=== PATIENT | female | born 1990 | race Two or more races ===

== ENCOUNTER 2025-02-03 13:12 | Emergency (ER) | payer SELFPAY ==
[2025-02-03 13:28] VITALS: BP 136/92; PULSE 95; RESP 18; TEMP 36.9; O2SAT 99; BMI 37.6
--- NOTE | 2025-02-03 13:33 | XR_ITS ---
Examination: Pelvic ultrasound, transabdominal, complete Technique: Transabdominal ultrasound of the pelvis performed using grayscale imaging Date and time of exam: February 03, 2025 1359 hours INDICATIONS: Irregular heavy vaginal bleeding one month FINDINGS: Uterus 11.6 cm multiple uterine masses, the largest in the fundus 4.5 x 4.0 cm Endometrium is obscured by the uterine masses Ovaries obscured by bowel gas IMPRESSION: Limited study secondary to bowel gas Multiple uterine masses, the largest in the fundus 4.5 cm, consider transvaginal pelvic sonography follow-up
--- NOTE | 2025-02-03 13:33 | PD.EDRME ---
Rapid Medical Screening Exam RME Arrival date/time: 02/03/25 13:12 34-year-old female presents emergency department today for complaint of vaginal bleeding Chief Complaint: Vaginal Bleeding Time Seen by Provider: 02/03/25 13:33 Vital signs: Vital Signs Temperature 98.5 F 02/03/25 13:28 Pulse Rate 95 02/03/25 13:28 Respiratory Rate 18 02/03/25 13:28 Blood Pressure 136/92 H 02/03/25 13:28 Pulse Oximetry (%) 99 02/03/25 13:28 Oxygen Delivery Method Room Air 02/03/25 13:28
[2025-02-03 13:54] LABS: Collection Type, Urine Clean Catch
[2025-02-03 14:04] LABS: Bilirubin,Urine Negative (Negative); Blood,Urine 3+ (Negative); Color,Urine Brown (Lt Yel-Yel); Culture Indicated,Urine Contaminated; Glucose, Urine Negative (Negative); Ketones,Urine Negative (Negative); Leukocyte Esterase,Urine Positive (Negative); Nitrite,Urine Negative (Negative); PH,Urine 5.5 (5.0-7.0); Protein,Urine 1+ (Neg - Trace); RBC,Urine 5206 /hpf (0-3); Specific Gravity,Urine 1.023 (1.001-1.035); Squamous Epithelial Cell,Urine 13 /hpf (0-5); Urobilinogen,Urine Negative mg/dL (0.0-1.0); WBC,Urine 50 /hpf (0-5)
[2025-02-03 14:05] LABS: Basophils # (Auto) 0.0 Thou/mm3 (0.0-0.2); Basophils % (Auto) 1 % (0-2.5); Eosinophils # (Auto) 0.1 Thou/mm3 (0.0-0.5); Eosinophils % (Auto) 2 % (0-10); Hematocrit 27.6 % (36.0-46.0); Immature Granulocytes Auto 0.02 Thou/mm3 (0.00-0.00); Lymphocytes # (Auto) 2.4 Thou/mm3 (1.0-4.8); Lymphocytes % (Auto) 33 % (10-50); Mean Corpuscular HGB Conc 31.5 g/dl (31.0-37.0); Mean Corpuscular Hemoglobin 24.2 pg (25.0-35.0); Mean Corpuscular Volume 77 fL (80-100); Monocytes # (Auto) 0.5 Thou/mm3 (0.0-0.8); Monocytes % (Auto) 6 % (0-12); Neutrophils # (Auto) 4.3 Thou/mm3 (1.8-7.7); Neutrophils % (Auto) 59 % (37-80); Nucleated Red Blood Cell # 0.00 Thou/mm3 (0.00-0.00); Nucleated Red Blood Cell % 0 /100 WBC (0); Platelet Count 262 Thou/mm3 (140-440); RDW Standard Deviation 43.4 fL (36.4-46.3); Red Blood Count 3.59 Miln/mm3 (4.00-5.20); White Blood Count 7.3 Thou/mm3 (3.6-11.0)
[2025-02-03 14:07] LABS: HCG Qualitative,Urine Negative
[2025-02-03 14:10] LABS: Hemoglobin 8.7 g/dL (12.0-16.0)
[2025-02-03 14:10] LABS: Clarity,Urine Cloudy (Clear/Hazy)
[2025-02-03 14:19] LABS: INR 1.0 (0.9-1.3); Partial Thromboplastin Time 26.8 Seconds (22.0-36.0); Prothrombin Time 10.7 Seconds (9.0-12.2)
[2025-02-03 14:22] LABS: Alanine Aminotransferase 14 U/L (10-49); Albumin, Serum 4.4 gm/dL (3.5-5.0); Albumin/Globulin Ratio 1.5 (1.2-2.2); Alkaline Phosphatase 82 U/L (46-116); Anion Gap 8 (7-16); Aspartate Amino Transferase 18 U/L (0-34); BUN/Creatinine Ratio 14 Ratio (12-20); Bilirubin,Total 0.4 mg/dL (0.3-1.2); Blood Urea Nitrogen 10 mg/dL (9-23); Calcium 9.3 mg/dL (8.3-10.6); Calcium (Corrected) 9.3 mg/dL (8.5-10.1); Carbon Dioxide 24.8 mMol/L (20.0-31.0); Chloride 107 mMol/L (98-107); Creatinine (Component) 0.7 mg/dL (0.6-1.3); Estimated Creatinine Clearance 157.0 mL/min (>60); Globulin 2.9 gm/dL (2.3-3.5); Glucose 101 mg/dL (74-106); Lipase 26 U/L (12-53); Osmolality,Calculated 278 (275-295); Potassium 4.3 mMol/L (3.4-5.1); Sodium 140 mMol/L (136-145); Total Protein 7.3 gm/dL (5.7-8.2); eGFR > 60 See Note
[2025-02-03 17:46] VITALS: BP 152/87; PULSE 103; RESP 18; TEMP 36.5; O2SAT 98
--- NOTE | 2025-02-03 18:17 | XR_ITS ---
Examination: Transvaginal ultrasound of the pelvis, complete Technique: Transvaginal sonographic images pelvis performed using cornell scale imaging Exam date and time: February 03, 2025 0644 hours INDICATIONS: Vaginal bleeding beginning 2 months ago FINDINGS: Uterus 10.7 cm multiple uterine fundal and body masses, the largest in the mid uterus 4.9 x 3.6 cm Right ovary 4.6 cm arterial flow Left ovary obscured by bowel gas IMPRESSION: Multiple uterine areas of fibroid degeneration, recommend 6 month follow up transvaginal pelvic sonography
--- NOTE | 2025-02-03 18:25 | PD.EDVAGBL ---
ED OB Contraction Preg RMI/HPI General Chief complaint: Vaginal Bleeding Stated complaint: Vaginal bleeding since December 14 week Time Seen by Provider: 02/03/25 13:33 Arrival date/time: 02/03/25 13:12 Limitations: no limitations RME / HPI RME / HPI Narrative: 34-year-old female who is here today with a 2-month history of vaginal bleeding. She states this waxes and wanes. She uses up to 2 pads a day and other times she has continuous spotting. She also states she has noticed some facial hair that is developed the last 2 months along with skin tags. She states she has had difficulty losing weight for last 2 months. She has no primary care provider or railroad design consultant. She has no healthcare coverage. She does have increased weakness. She has no other acute complaints or concerns. Related Data Previous Rx's ?Medication ?Instructions ?Recorded acetaminophen 650 mg 650 mg PO Q8H PRN fever or pain 02/23/19 tablet,extended release #30 tabs ibuprofen 600 mg tablet 600 mg PO Q8H PRN fever or pain 02/23/19 #30 tabs sulfamethoxazole 800 1 tab PO Q12H #20 tabs 02/23/19 mg-trimethoprim 160 mg tablet (Bactrim DS) Allergies Allergy/AdvReac Type Severity Reaction Status Date / Time No Known Allergies Allergy Verified 02/03/25 13:18 Review of Systems Review of Systems Systems Reviewed: All systems reviewed, normal except as documented ED Exam General Limitations: Present no limitations General appearance: Present alert and in no apparent distress Head Head exam: Present atraumatic Eye Eye exam: Present normal appearance, PERRL and EOMI ENT ENT exam: Present normal exam, normal oropharynx and mucous membranes moist Neck Neck exam: Present normal inspection, full ROM and trachea midline Chest Chest inspection: Present normal inspection and symmetric chest wall rise Respiratory Respiratory exam: Present normal lung sounds bilaterally Cardiovascular Cardiovascular exam: Present regular rate, normal rhythm and normal heart sounds Abdominal Exam Abdominal exam: Present soft and normal bowel sounds Extremities Exam Extremities exam: Present normal inspection and full ROM Back Exam Back exam: Present normal inspection and full ROM Neurological Exam Neurological exam: Present alert and oriented X3 Psychiatric Psychiatric exam: Present normal affect and normal mood Skin Skin exam: Present warm, dry, intact and normal color Course Quality Measures none Orders Category Date Time Status US pelvic complete Stat Exams 02/03/25 13:33 Completed US transvaginal Stat Exams 02/03/25 18:17 Completed CBC Stat Lab 02/03/25 13:55 Completed Comprehensive Metabolic Panel Stat Lab 02/03/25 13:55 Completed HCG Qualitative,Urine Stat Lab 02/03/25 13:49 Completed Lipase Stat Lab 02/03/25 13:55 Completed PT [Prothrombin Time with INR] Stat Lab 02/03/25 13:55 Completed PTT [Partial Thromboplastin Time] Stat Lab 02/03/25 13:55 Completed Thyroid Stimulating Hormone Stat Lab 02/03/25 13:55 Completed UA, C/S IF [Urinalysis, C/S if Indicated] Stat Lab 02/03/25 13:49 Completed Vital Signs Vital signs: Vital Signs Temperature 98.5 F 02/03/25 13:28 Pulse Rate 95 02/03/25 13:28 Respiratory Rate 18 02/03/25 13:28 Blood Pressure 136/92 H 02/03/25 13:28 Pulse Oximetry (%) 99 02/03/25 13:28 Oxygen Delivery Method Room Air 02/03/25 13:28 Vaginal Bleeding MDM Narrative MDM Narrative: 34-year-old female who is here today with a 2-month history of vaginal bleeding. She states this waxes and wanes. She uses up to 2 pads a day and other times she has continuous spotting. She also states she has noticed some facial hair that is developed the last 2 months along with skin tags. She states she has had difficulty losing weight for last 2 months. She has no primary care provider or railroad design consultant. She has no healthcare coverage. She does have increased weakness. She has no other acute complaints or concerns. On exam, patient is nontoxic-appearing and in no visible signs distress. Vital signs are stable. Her hemoglobin Retacrit revealed anemia. She has no leukocytosis. Here hemoglobin is 8.7 and her hematocrit is 27.6. TSH is within normal limits. Ultrasound of the pelvis reveals multiple uterine masses. Case discussed with the on-call railroad design consultant, Dr. Queen do not believe any further intervention or workup was required warranted. Advised outpatient follow-up with gynecology.This were discussed with the patient. She will use ibuprofen for comfort. Follow-up with gynecology as an outpatient. Return at anytime for worsening changes. Patient data External records reviewed:: None Clinical information provided by:: patient Social determinants that could affect healthcare access:: none Patient has the following chronic illnesses:: n/a How is presenting disease/condition affected by chronic disease/condition?: no chronic disease Evaluation data The following diagnostics were reviewed and interpreted by me:: lab results and radiology exam(s) Lab and/or radiology exams considered but not ordered:: n/a Interpretation Summary: Intrauterine fibroids Medications / Prescriptions Medications or Prescriptions considered but not ordered:: n/a Medication administrations:: n/a Consultations Consultation(s) initiated? (list below): Yes Diagnosis Vaginal Bleeding Differential Diagnosis: dysfunctional uterine bleeding, menometrorrhagia, incomplete , ectopic without intrauterine and vaginal bleeding Most likely diagnosis given after review of the tests above:: Intrauterine fibroids Admission Indicated Admission indicated?: not indicated Admission Request Was there a request for admission?: No Disposition Plan Disposition Plan: Discharge Discharge Attestation Discharge Attestation: The patient and all family members were given an opportunity to ask questions and understood the discharge instructions. Discharge instructions specifically effects, indications for sooner follow up or return to the emergency department, and the expected course of current diagnosis. Patient condition: Stable Discharge Plan Plan Patient Disposition: HOME (Self Care) Patient condition on transfer: Stable Prescriptions/Referrals Prescriptions/Med Rec: No Action acetaminophen 650 mg tablet extended release 650 mg PO Q8H PRN (Reason: fever or pain) Qty: 30 0RF Rx Instructions: swallow whole; do not crush, chew, break, dissolve, cut, or open sulfamethoxazole-trimethoprim [Bactrim DS] 800-160 mg tablet 1 tab PO Q12H Qty: 20 0RF ibuprofen 600 mg tablet 600 mg PO Q8H PRN (Reason: fever or pain) Qty: 30 0RF Rx Instructions: prn pain / fever Referrals: Malachi Eckert MD [Primary Care Provider] - In 1 week Problem List Clinical Impression: Vaginal bleeding Patient/Caregiver Discharge Instructions Education Materials: ED Dysfunctional Uterine Bleeding Additional Instructions: - Use ibuprofen 600 mg every 8 hours as needed. - Please follow-up with gynecology. [facility] contact [facility]. You may also contact Dr. Sue at [phone]. - Please return to the emergency room at anytime for worsening changes including increased weakness, dizziness, or pain. Print Language: Tajik Stand Alone Forms: Mariza Award Info., Patient Portal Info Letter
[2025-02-03 18:58] LABS: Thyroid Stimulating Hormone 1.27 uIU/mL (0.55-4.78)
[2025-02-03 20:33] VITALS: BP 125/68; PULSE 89; RESP 18; TEMP 36.6; O2SAT 99
== END 2025-02-03 20:35 | disposition home or self-care (01) ==
PROVIDERS: Nurse Practitioner Primary Care; Emergency Provider Emergency Medicine; PCP Family Medicine
DX: N93.9 Abnormal uterine and vaginal bleeding, unspecified (principal); D25.9 Leiomyoma of uterus, unspecified
CPT/HCPCS: 36415; 76830; 76856; 80053; 81001; 81025; 83690; 84443; 85025; 85610; 85730; 99283